=== PATIENT | female | born 1935 | race Caucasian/White ===

== ENCOUNTER → 2016-06-19 | Day surgery (SDC) | payer MEDICARE ==
[~2016-06-19] MED LIST: ACETAMINOPHEN PO; ASPIRIN81 M2 PO; ASPIRIN81 MG PO; ATENOLOL50 MG PO; ATIVAN0.5 MG PO; BRILINTA90 MG PO; CALCIUM + VITAM1 TAB PO; DOCUSATE SODIU100 MG PO; EDTA TOP; IMDUR PO; LASIX20 MG PO; LEVAQUIN750 MG PO; LEVOTHYROXINE25 MCG PO; LIPITOR40 MG PO; LISINOPRIL PO; LORAZEPAM0.5 MG PO; MELATONIN3 M4 PO; MOBIC PO; NITROGLYCERIN0.3 M1 PO; OMEPRAZOLE20 M1 PO; REMERON SOLTAB15 M1 PO; REQUIP1 MG PO; SEROQUEL25 MG PO; SERTRALINE HCL100 M1 PO; SYNTHROID25 MCG PO; TENORMIN50 MG PO; ZESTRIL40 MG PO; ZOLOFT100 MG PO
--- NOTE | ~2016-06-19 | ECT ---
Unit #: [id number] #: [id number] Patient: GLORIA KENNEDY [id number] [place] [address] [id number] O MR#: [id number] NAME: GLORIA KENNEDY ROOM: Age: 81 Sex: F Admission Date: 06/19/2016 : 1935 Discharge Date: Attending Physician: Uriah North M.D. Primary Care Physician: Brandon Nuñez D.O. ECT NOTE DATE OF TREATMENT 06/19/2016 TREATMENT NUMBER 5 TREATMENT MODALITY Unilateral ECT ANESTHESIA Glycopyrrolate: 0.2 mg Brevital: 100 mg Succinylcholine: 80 mg TREATMENT PARAMETERS Charge: 384 millicoulombs Pulse Width: 1.0 milliseconds Frequency: 40 Hertz Duration: 6 seconds Current: 800 milliamps TREATMENT DELIVERED Energy: 84 joules Impedance: 268 ohms Charge: 384 millicoulombs SEIZURE MEASURES OMS: 21 seconds EE seconds COMPLICATIONS None. SUMMARY The patient had a good seizure with her OMS and EEG measures. Depression does seem to have shown significant improvement. She is much more brighter in her affect and seems more interactive with peers and staff. I will bring her back for 1 more ECT on Wednesday and if the weekend goes pretty well, will wrap up her treatment at that point. DIFFERENTIAL DIAGNOSES AXIS I: F33.2. AXIS II: Deferred. AXIS III: Nothing acute. Unit #: [id number] #: [id number] Patient: GLORIA KENNEDY Dictated by... Dana Noland/jordan TD: 06/19/2016 17:33 JOB #: [id number] ECT NOTE X Uriah North MD <ELECTRONICALLY SIGNED> 12/15/16 1702 X ECT
== END | disposition home or self-care (01) ==
LOC: CSUR 06:50
DX: F33.2 Major depressive disorder, recurrent severe without psychotic features (principal); F41.1 Generalized anxiety disorder; E03.9 Hypothyroidism, unspecified; K21.9 Gastro-esophageal reflux disease without esophagitis; R01.1 Cardiac murmur, unspecified; G47.00 Insomnia, unspecified; Z79.899 Other long term (current) drug therapy; I25.10 Atherosclerotic heart disease of native coronary artery without angina pectoris; I25.2 Old myocardial infarction; Z95.5 Presence of coronary angioplasty implant and graft; Z96.641 Presence of right artificial hip joint; Z90.710 Acquired absence of both cervix and uterus
CPT/HCPCS: 90870

== ENCOUNTER → 2016-06-22 | Day surgery (SDC) | payer MEDICARE ==
--- NOTE | ~2016-06-22 | ECT ---
Unit #: [id number] #: [id number] Patient: GLORIA KENNEDY [id number] [address] [id number] O MR#: [id number] NAME: GLORIA KENNEDY ROOM: Age: 81 Sex: F Admission Date: 06/22/2016 : 1935 Discharge Date: Attending Physician: Uriah North M.D. Primary Care Physician: Brandon Nuñez D.O. ECT NOTE DATE OF TREATMENT 06/22/2016 TREATMENT NUMBER Six. TREATMENT MODALITY Unilateral ECT. ANESTHESIA Glycopyrrolate: 0.2 mg. Brevital: 100 mg. Succinylcholine: 80 mg. TREATMENT PARAMETERS Charge: 384 millicoulombs Pulse Width: 1.0 milliseconds Frequency: 40 Hertz Duration: 6 seconds Current: 800 milliamps TREATMENT DELIVERED Energy: 84 joules Impedance: 266 ohms Charge: 384 millicoulombs SEIZURE MEASURES OMS: 20 seconds EE seconds COMPLICATIONS None. SUMMARY The patient had a good seizure with OMS and EEG measures. Depression seems to have reached remission status. She does not have any symptoms noted today. She did get out with friends over the weekend. She seems to be more engaged in self-grooming and her seems to feel that she has been doing significantly better. I will conclude her ECT treatment today and she will followup on a p.r.n. basis. DIFFERENTIAL DIAGNOSES AXIS I: F33.2 Unit #: [id number] #: [id number] Patient: GLORIA KENNEDY AXIS II: Deferred. AXIS III: Nothing acute. AXIS IV: AXIS V: Dictated by... Uriah North M.D. ANGELES/mario TD: 06/23/2016 12:23 JOB #: [id number] ECT NOTE X Uriah North MD <ELECTRONICALLY SIGNED> 12/15/16 1702 X ECT
== END | disposition home or self-care (01) ==
LOC: CSUR 07:24
DX: F33.2 Major depressive disorder, recurrent severe without psychotic features (principal); E03.9 Hypothyroidism, unspecified; I10 Essential (primary) hypertension; K21.9 Gastro-esophageal reflux disease without esophagitis; R01.1 Cardiac murmur, unspecified; Z79.899 Other long term (current) drug therapy; G47.00 Insomnia, unspecified; I25.10 Atherosclerotic heart disease of native coronary artery without angina pectoris; I25.2 Old myocardial infarction; Z95.5 Presence of coronary angioplasty implant and graft; Z90.710 Acquired absence of both cervix and uterus; Z96.641 Presence of right artificial hip joint
CPT/HCPCS: 90870; J0330

== ENCOUNTER 2016-07-02 11:36 | Observation (INO) | payer MEDICARE ==
--- NOTE | ~2016-07-02 | CO ---
Unit #: [id number] #: [id number] Patient: GLORIA KENNEDY [id number] [address] [place], [place] [address] [id number] I MR#: [id number] NAME: GLORIA KENNEDY ROOM: 548 Age: 81 Sex: F Admission Date: 07/02/2016 : 1935 Attending Physician: Beti Caban M.D. Primary Care Physician: Brandon Nuñez D.O. Consultation Date: 07/03/2016 CONSULTATION REPORT REQUESTING PHYSICIAN Lowell Quintero M.D. REASON FOR CONSULTATION Chest pain. HISTORY OF PRESENT ILLNESS The patient is an 81-year-old female with history of coronary artery disease, NY and stent placement, hypertension, dyslipidemia, GERD, and hypothyroidism who presented on July 02, 2016 to the emergency department with complaints of chest pain. The patient also has severe depression and has started ECT treatment in May. The patient had a treatment this past Wednesday. According to the chart, the patient developed generalized shakiness following her Wednesday ECT treatment. This continued for several days. She then developed chest pain on the night of July 01, 2016, and was later brought into the emergency room with complaints of chest pain and shakiness. The patient is a very poor historian and no family is present at bedside. I have also tried to call her at home with no answer. The patient is unable to describe the type of chest pain she had other than it was "not sharp." She says it was across the front of her chest. She thinks she had shortness of breath associated but no nausea, vomiting, or diaphoresis. She also had chest pain during the night and received nitroglycerin. According to the nurse, the patient states she later apologized about the pain and stated that she only wanted pain medicine; however, the patient does not report this to me. She does report that the nitroglycerin alleviated her pain. Serial troponins have been negative. PAST MEDICAL HISTORY 1. Coronary artery disease with history of NY and stent. 2. Murmur (according to a preop history and physical done in May, this has been evaluated. However, no echo reports were found in [facility]). 3. Hypertension. 4. Dyslipidemia. 5. GERD. 6. Hypothyroidism. 7. Severe depression with ECT treatment. 8. Insomnia. PAST SURGICAL HISTORY 1. Right total hip arthroplasty. 2. Tonsillectomy. 3. Hysterectomy. Unit #: [id number] #: [id number] Patient: GLORIA KENNEDY 4. Bilateral cataract extraction and implant placement. SOCIAL HISTORY The patient does not smoke. She states she smoked in the past but quit over 40 years ago. She denies alcohol use or illicit drug use. She is and lives at home with her who is reportedly a professor of musicology doctor. The patient ambulates with a walker. FAMILY HISTORY Patient had two brothers, who both had MIs in their 70s to 80s. HOME MEDICATIONS 1. Zestril 40 mg daily. 2. Zoloft 100 mg daily. 3. Synthroid 25 mcg daily. 4. Lasix 20 mg daily. 5. Mobic 7.5 mg daily. 6. Lipitor 40 mg daily. 7. Tenormin 50 mg daily. 8. Seroquel 25 mg nightly. 9. Ativan 0.5 mg twice daily. 10. Remeron 15 mg nightly. ALLERGIES No known drug allergies. REVIEW OF SYSTEMS GENERAL: The patient denies fevers, chills, or flu-like symptoms. HEENT: Denies headaches, vision loss, hearing loss, epistaxis, or dysphagia. NECK: Denies swollen glands or pain. PULMONARY: Denies cough, hemoptysis, or wheezing. GASTROINTESTINAL: Denies nausea, vomiting, diarrhea, or melena. GENITOURINARY: Denies hematuria or dysuria. EXTREMITIES: She states may have occasional swelling. Denies claudication. NEUROLOGIC: Denies dizziness or syncope. DIAGNOSTIC STUDIES LABORATORY: Troponin less than 0.03 at 6:45 this morning and at 12:17 this morning and at 1820 yesterday. Sodium 134, potassium 4.2, chloride 103, CO2 of 27, glucose 102, BUN 18, creatinine 0.8. White blood cell 9, hemoglobin 12.6, hematocrit 38.1, platelets 247,000. CK 138, CK-MB 4.3. TSH 3.95. BNP 267. PT 10, INR 1. IMAGING: CT of the head without contrast shows no acute abnormality, chronic appearing changes of periventricular and deep white matter tract probable sequela of chronic microvascular ischemia, mild generalized atrophy, and cavernous carotid and distal vertebral arterial calcifications. CARDIOVASCULAR: EKG shows normal sinus rhythm. PHYSICAL EXAMINATION VITAL SIGNS: Blood pressure is 117/57 (blood pressure was as high as 203/74 at admission), heart rate 72 and regular, respirations 18 and regular, temperature 98.2, O2 saturation 99% on room air. Weight 126 pounds. Unit #: [id number] #: [id number] Patient: GLORIA KENNEDY GENERAL: The patient is a well-developed, well-nourished, elderly, white female in no acute distress. Awake and oriented x3, although has difficulty with memory. HEENT: Head is normocephalic and atraumatic. No xanthelasmas. Oral mucosa is pink and moist. NECK: No JVD or carotid bruits. SPINE: No kyphosis or scoliosis. CHEST: Clear to auscultation bilaterally without wheezes, rhonchi, or accessory muscle use. CORONARY: Regular rate and rhythm with a 2/6 systolic murmur. No gallop, rub, or lift. ABDOMEN: Soft, nontender, nondistended. Positive bowel sounds x4. The aortic pulsation is not enlarged. EXTREMITIES: No clubbing, cyanosis, or edema. NEUROLOGIC: Awake and oriented x3. ASSESSMENT 1. Chest pain. 2. Coronary artery disease with history of stents. 3. Hypertension. 4. Dyslipidemia. 5. Gastroesophageal reflux disease. 6. Hypothyroidism. 7. Depression with electroconvulsive treatment. 8. Memory loss. PLAN Ms. Kennedy's case was discussed with Dr. Toan Hurtado. Given her history of coronary artery disease, NY and stent, and reports of chest pain, we felt ischemic evaluation was warranted. Again, we are unable to obtain much history from the patient and her family is not present at this time for further questioning. We will plan on a Lexiscan Cardiolite and if echocardiogram has not been performed in the past six months, this will be completed as well. Dictated by... Niesha BalderramaAChris for Toan Hurtado M.D. CMG/flash TD: 07/03/2016 13:41 JOB #: [id number] CONSULTATION REPORT X X CONSULTATION REPORT
--- NOTE | ~2016-07-02 | ST ---
Unit #: [id number] #: [id number] Patient: GLORIA KENNEDY [id number] [address] [place], [place] [address] [id number] MR#: [id number] NAME: GLORIA KENNEDY : 1935 SEX: F STUDY DATE/TIME: 07/03/2016 UNIT: C5B ROOM: 548 STUDY DESCRIPTION: Attending Physician: Beti Caban M.D. Primary Care Physician: Brandon Nuñez D.O. CARDIOLOGY REPORT EXAM Stress nuclear and ECG combined. INDICATIONS Chest pain. SUMMARY The patient received Lexiscan intravenously while at rest as well as technetium 99m Cardiolite 10.76 and 32.5 mCi at rest and stress respectively. Appropriate views were obtained. FINDINGS The patient was given Lexiscan and multifocal PVCs were noted as well as shortness of breath noted by the patient. The resting heart rate was 83, blood pressure 179/94. There were nonspecific ST changes primarily in V4 at rest but with stress there was 0.[address] depression in leads V4 through V6. These were nonspecific. Heart rate increased to 107. Blood pressure decreased to 144/89. Perfusion images demonstrate normal perfusion throughout the myocardium both at rest and stress. Planar images demonstrate no significant patient motion either at rest or stress. There is no significant lung uptake. There is breast attenuation artifact. There is no RV or LV enlargement. End-diastolic volume is 67 mL, ejection fraction 57%. There were no wall motion abnormalities. Summed stressed score is zero. Summed difference score is zero. IMPRESSION 1. Myocardial perfusion scan shows no ischemia or infarction. 2. Normal wall motion with excellent ejection fraction. 3. Patient may be discharged. 4. Pain is thought to be noncardiac. Dictated by... Toan Hurtado M.D. CLARISSE/flash TD: 07/04/2016 08:38 JOB #: [id number] Unit #: [id number] #: [id number] Patient: GLORIA KENNEDY CARDIOLOGY REPORT X Toan Hurtado MD CARDIOLOGY REPORT
--- NOTE | ~2016-07-02 | EKG ---
PATIENT: GLORIA KENNEDY UNIT #: [id number] Ventricular Rate: 83 BPM Atrial Rate: 83 BPM P-R Interval: 154 ms QRS Duration: 96 ms Q-T Interval: 436 ms QTC Calculation(Bezet): 512 ms P [place]: 31 degrees Calculated R [place]: -9 degrees Calculated T [place]: 59 degrees Diagnosis Line: Sinus rhythm with Premature atrial complexes with Diagnosis Line: Aberrant conduction Diagnosis Line: Nonspecific ST and T wave abnormality Diagnosis Line: Prolonged QT Diagnosis Line: Abnormal ECG Diagnosis Line: No previous ECGs available Diagnosis Line: Confirmed by CARLOS REYES MD ([id number]) on Diagnosis Line: 07/05/2016 11:56:44 PM INTERPRETING MD: AMY LOPEZ
--- NOTE | ~2016-07-02 | EKG ---
PATIENT: GLORIA KENNEDY UNIT #: [id number] Ventricular Rate: 74 BPM Atrial Rate: 74 BPM P-R Interval: 196 ms QRS Duration: 96 ms Q-T Interval: 436 ms QTC Calculation(Bezet): 483 ms P [place]: 67 degrees Calculated R [place]: 22 degrees Calculated T [place]: 38 degrees Diagnosis Line: Sinus rhythm with occasional Premature ventricular Diagnosis Line: complexes Diagnosis Line: Otherwise normal ECG Diagnosis Line: When compared with ECG of 08-JUN-2016 08:55, Diagnosis Line: Premature ventricular complexes are now Present Diagnosis Line: Confirmed by SPENCER GLYNN MD ([id number]) on 07/02/2016 Diagnosis Line: 5:46:35 PM INTERPRETING MD: GRETTA LOPEZ
--- NOTE | ~2016-07-02 | CR72 ---
[facility] A Service of [facility] RADIOLOGY TEXT RESULTS PATIENT: GLORIA KENNEDY LOCATION: [facility] 548-01 : 33 UNIT #: [id number] AGE: [address]: HERMILA REARDON MD SEX: F ORDER DR: [id number] [facility] [address] [place], [place] [address] [id number] E MR#: [id number] #: [id number] NAME: GLORIA KENNEDY : 1935 SEX: F STUDY DATE/TIME: 07/02/2016 12:41 UNIT: [facility] ROOM: STUDY DESCRIPTION: CR Chest Single View Portable Attending Physician: Dana Bush M.D. Ordering Physician: Dana Bush M.D. Primary Care Physician: Brandon Nuñez D.O. MEDICAL IMAGING REPORT This report is preliminary unless electronic signature is present EXAM Chest, portable, 07/02/2016, 1241 hours. CLINICAL HISTORY 81-year-old woman with chest pain and shakiness today, former smoker. COMPARISON None FINDINGS Portable upright chest demonstrates normal heart size and a mildly tortuous atherosclerotic aorta. The hilar contours are normal. The lungs are moderately well expanded with interstitial prominence in the mid and lower lungs which could be acute or chronic. An element of acute interstitial edema cannot be excluded. There is no effusion. There is advanced degenerative change at both shoulders, right greater than left. IMPRESSION Normal heart size with bibasilar interstitial change which could be acute or chronic. We have no prior studies for comparison. If acute, this could represent interstitial edema or interstitial pneumonitis. However, no pulmonary venous distension or pleural fluid is seen. Dictated by... Elham Hoang M.D. THIS IS AN ELECTRONICALLY VERIFIED REPORT Elham Hoang M.D. at 07/03/2016 8:58 AM ERMA/faith TD: 07/02/2016 14:41 [facility] A Service of [facility] RADIOLOGY TEXT RESULTS PATIENT: GLORIA KENNEDY LOCATION: [facility] 548-01 : [birth year] UNIT #: [id number] AGE: [address]: HERMILA REARDON MD SEX: F ORDER DR: JOB #: [id number] MEDICAL IMAGING REPORT COPY
--- NOTE | ~2016-07-02 | DS ---
Unit #: [id number] #: [id number] Patient: GLORIA KENNEDY [id number] [address] [place], [place] [address] [id number] I MR#: [id number] NAME: GLORIA KENNEDY ROOM: 548 Age: 81 Sex: F Admission Date: 07/02/2016 : 1935 Discharge Date: 07/04/2016 Attending Physician: Beti Caban M.D. Primary Care Physician: Brandon Nuñez D.O. DISCHARGE SUMMARY FINAL DIAGNOSES 1. Chest pain, acute coronary syndrome ruled out. 2. Bilateral lower extremity weakness and tremors. SECONDARY DIAGNOSES 1. Hypertension. 2. Hyperlipidemia. 3. Hypothyroidism. 4. Insomnia. 5. Gastroesophageal reflux disease. 6. History of myocardial infarction with stent. CONSULT Dr. Hurtado. PROCEDURE She had a Cardiolite stress test which was negative for ischemia. HOSPITAL COURSE An 81-year-old female who was admitted for what looked like chest pain and anxiety and bilateral lower extremity tremors and weakness. She was seen and evaluated in emergency room and admitted. Workup so far which included a stress test was negative. Ischemia was ruled out in this case. She has a significant cardiac history in the past with stents. She is well established with PCP, Dr. Brandon Nuñez. She was evaluated and found suitable and stable for discharge and will be discharged in stable condition for outpatient followup with her PCP in the next three to five days. She will be discharged with home health. Will get physical therapy/occupational therapy evaluation prior to discharge. DISCHARGE MEDICATIONS 1. Tylenol over the counter. 2. Remeron 15 mg p.o. at bedtime. 3. Zoloft 100 mg p.o. daily. 4. Seroquel 25 mg at bedtime. 5. Ativan 0.5 mg p.o. b.i.d. 6. Atenolol 50 mg p.o. daily. 7. Lasix 20 mg p.o. daily. 8. Lipitor 40 mg p.o. daily. 9. Zestril 40 mg p.o. daily. 10. Mobic 7.5 mg p.o. daily. 11. Synthroid 25 mcg p.o. daily. Her PCP is to consider Requip for possible restless legs. Unit #: [id number] #: [id number] Patient: GLORIA KENNEDY Time spent coordinating discharge is about 26 minutes. Dictated by... Dana Bryson/flash TD: 07/04/2016 09:49 JOB #: [id number] CC: Brandon Nuñez D.O. DISCHARGE SUMMARY X Salo Chamberlain MD X DISCHARGE SUMMARY
--- NOTE | ~2016-07-02 | HP ---
Unit #: [id number] #: [id number] Patient: GLORIA KENNEDY [id number] [address] [place], [place] [address] [id number] E MR#: [id number] NAME: GLORIA KENNEDY ROOM: Age: 81 Sex: F Admission Date: 07/02/2016 : 1935 Attending Physician: Dana Bush M.D. Primary Care Physician: Brandon Nuñez D.O. HISTORY AND PHYSICAL CHIEF COMPLAINT Chest pain. HISTORY OF PRESENT ILLNESS The patient is an 81-year-old female brought to the emergency room complaining of chest pain associated with shaking all over the body. The patient had multiple ECTs for severe depression and the last ECT was on Wednesday. On the Wednesday afternoon is when the patient started having shakiness that lasted for an hour. The patient continues to have shakiness for the last few days. However, she started complaining of chest pain since last night. The patient was brought to the emergency room for the chest pain associated with shakiness. The patient denies any fever, chills, nausea, vomiting and diaphoresis. The patient has a history of myocardial infarction with history of a stent placement in the past. The patient is being admitted for the above reasons. PAST MEDICAL HISTORY 1. Depression/anxiety with previous history of ECTs. 2. Hypertension. 3. Hyperlipidemia. 4. Hypothyroidism. 5. Insomnia. 6. Gastroesophageal reflux disease. 7. History of myocardial infarction with stent. PAST SURGICAL HISTORY 1. Right total hip arthroplasty. 2. Tonsillectomy. 3. Hysterectomy. 4. Bilateral cataract extractions. SOCIAL HISTORY The patient denies tobacco, alcohol or any illicit drug abuse. She is . Her is a cytology supervisor doctor. FAMILY HISTORY Reviewed and none. No history of depression. ALLERGIES No known drug allergies. HOME MEDICATIONS 1. Lorazepam. 2. Sertraline. Unit #: [id number] #: [id number] Patient: GLORIA KENNEDY 3. Aspirin. 4. Lipitor. 5. Atenolol. 6. Calcium. 7. Lasix. 8. Levothyroxine. 9. Zestril. 10. Melatonin. 11. Mobic. 12. Omeprazole. REVIEW OF SYSTEMS Fourteen point review of systems performed and only pertinent positive findings are described above. The remaining are negative. PHYSICAL EXAMINATION GENERAL: The patient is lying on a bed, not in acute distress. VITALS: Temperature 98, pulse 58, respiratory rate 18, blood pressure 175/110, oxygen saturation 100% on room air. HEENT: Head atraumatic, normocephalic. Pupils equal, round and reactive to light and accommodation. Extraocular movements are intact. Moist mucous membranes. NECK: Supple. No jugular venous distension. LUNGS: Clear to auscultation bilaterally. Decreased air entry. HEART: Regular rate and rhythm. Positive for murmur. ABDOMEN: Soft. Positive bowel sounds. EXTREMITIES: No cyanosis or clubbing. NEUROLOGIC: Awake, alert and oriented. No gross focal motor deficits. PSYCHIATRIC: The patient is anxious and has shakiness. DIAGNOSTIC STUDIES IMAGING: Chest x-ray shows normal heart size with bibasilar interstitial change which could be acute or chronic. We have no prior study for comparison. This could represent interstitial edema or interstitial pneumonitis. However, no pulmonary venous distension or pleural fluid is seen. LABORATORY: Glucose 87, BUN 19, creatinine 0.8, sodium 135, potassium 3.8, chloride 100, bicarb 22, calcium 9.7, magnesium 2, AST 78, ALT 58, alkaline phosphatase 242, BNP 267, TSH 3.95, INR 1, troponin less than 0.05, white blood cell count 8.1, hemoglobin 13.3, hematocrit 31.4, platelets 253. CARDIOVASCULAR: EKG shows sinus rhythm with a rate of 75 beats per minute with PVCs and QTC of 483. ASSESSMENT 1. Chest pain. Rule out ischemia. 2. Shakiness/anxiety. 3. Depression, status post multiple ECTs. 4. History of coronary artery disease. 5. Hypertension. PLAN Admit the patient to observation with telemetry. Rule out ischemia with serial troponins. Have cardiology evaluation for the echo/stress test. Will continue with Xanax and Ativan p.r.n. for anxiety. Repeat labs again in the morning. Further recommendations will follow. Unit #: [id number] #: [id number] Patient: GLORIA KENNEDY Dictated by Dana Young TD: 07/02/2016 15:32 JOB #: [id number] HISTORY AND PHYSICAL X X HISTORY AND PHYSICAL
--- NOTE | ~2016-07-02 | CT71 ---
[facility] A Service of [facility] RADIOLOGY TEXT RESULTS PATIENT: GLORIA KENNEDY LOCATION: [facility] 548-01 : 33 UNIT #: [id number] AGE: [address]: Beti Caban MD SEX: F ORDER DR: [id number] [facility] [address] [place], [place] [address] [id number] E MR#: [id number] Acc #: [id number] NAME: GLORIA KENNEDY : 1935 SEX: F STUDY DATE/TIME: 07/02/2016 14:14 UNIT: ZEHRA ROOM: STUDY DESCRIPTION: CT Head Wo Contrast Attending Physician: Dana Bush M.D. Ordering Physician: Dana Bush M.D. Primary Care Physician: Brandon Nuñez D.O. MEDICAL IMAGING REPORT This report is preliminary unless electronic signature is present EXAM CT head. DATE OF EXAM 07/02/2016 HISTORY Chest pain, shaking all over. Confusion, anxiety for today, 50 minutes prior to arrival, recent electric shock therapy on Wednesday, [address] head performed skull base through vertex without intravenous contrast. NOTE: This CT exam was performed with one or more of the following radiation dose reduction techniques: automatic exposure control, adjustment of mA and/or kV according to patient size, and iterative reconstruction. COMPARISON No prior CTs for comparison at this institution. FINDINGS No intracranial hemorrhage or evidence of acute cortical ischemia. The midline structures are nondisplaced. The basal ganglia are intact. There are mild periventricular and deep white matter tract probable sequelae of chronic microvascular ischemia. Ventricles, cisterns and sulci show mild generalized enlargement consistent with mild generalized atrophy. Cavernous carotid and distal vertebral arterial calcifications. Intraorbital soft tissues unremarkable. Visualized paranasal sinuses and mastoid air cells are clear. IMPRESSION 1. No indication of acute abnormality in brain. If patient has ongoing neurologic symptoms, consider follow up imaging. [facility] A Service of [facility] RADIOLOGY TEXT RESULTS PATIENT: GLORIA KENNEDY [id number] [birth year] UNIT #: [id number] AGE: [address]: Beti Caban MD SEX: F ORDER DR: 2. Chronic-appearing changes include: Periventricular and deep white matter tract probable sequelae of chronic microvascular ischemia, mild generalized atrophy, cavernous carotid and distal vertebral arterial calcifications. Dictated by... Brandon Tinsley M.D. THIS IS AN ELECTRONICALLY VERIFIED REPORT Brandon Tinsley M.D. at 07/03/2016 4:18 PM Mely TD: 07/02/2016 17:23 JOB #: [id number] MEDICAL IMAGING REPORT COPY
[~2016-07-02 11:36] MED LIST changes: -ACETAMINOPHEN PO; -ASPIRIN81 MG PO; -ATIVAN0.5 MG PO; -BRILINTA90 MG PO; -DOCUSATE SODIU100 MG PO; -IMDUR PO; -LEVAQUIN750 MG PO; -NITROGLYCERIN0.3 M1 PO; -REMERON SOLTAB15 M1 PO; -REQUIP1 MG PO; -SEROQUEL25 MG PO; -SYNTHROID25 MCG PO; -TENORMIN50 MG PO; -ZESTRIL40 MG PO; -ZOLOFT100 MG PO
[2016-07-02 12:42] LABS: BASOPHIL% 0.3 % (0-2.5); EOSINOPHIL# 0.1 X10e3 (0-0.7); EOSINOPHIL% 1.7 % (0.0-7.0); HEMATOCRIT 39.4 % (35.0-45.0); HEMOGLOBIN 13.3 gm/dL (12.0-16.0); LYMPHOCYTE# 2.1 X10e3 (1.0-3.5); LYMPHOCYTE% 26.3 % (17.0-45.0); MEAN CELL VOLUME 89.7 FL (83-96); MEAN CORPUSCULAR HEMOGLOBIN 30.2 PG (28-34); MEAN CORPUSCULAR HGB CONC 33.7 g/dL (30-36); MEAN PLATELET VOLUME 9.5 FL (6.5-11.5); MONOCYTE# 0.6 X10e3 (0-1.0); MONOCYTE% 7.7 % (3.0-12.0); NEUTROPHIL# 5.1 X10e3 (1.5-7.1); PLATELET COUNT 253 X10e3 (140-420); RED BLOOD COUNT 4.39 X10e (3.90-5.30); RED CELL DISTRIBUTION WIDTH 13.9 % (11.0-15.5); WHITE BLOOD COUNT 8.1 X10e3 (4.0-10.5)
[2016-07-02 12:43] LABS: DIFF IND NO
[2016-07-02 12:54] LABS: PARTIAL THROMBOPLASTIN TIME 26.1 SECONDS (23.5-31.3)
[2016-07-02 12:54] LABS: POC - CKMB 2.6 ng/mL (0.0-7.9); POC - TROPONIN <0.05 ng/mL (<=0.05)
[2016-07-02 13:11] LABS: ALBUMIN SERUM 4.5 g/dL (3.5-5.0); ALKALINE PHOSPHATASE 242 U/L (32-92); ALT (SGPT) 66 U/L (10-40); AST (SGOT) 78 U/L (10-42); BILIRUBIN, DIRECT 0.1 mg/dL (0.0-0.2); BILIRUBIN,INDIRECT 0.2 mg/dL (0.0-0.9); BILIRUBIN,TOTAL 0.3 mg/dL (0.2-2.0); BLOOD UREA NITROGEN 19 mg/dL (9-23); BUN/CREATININE RATIO 23.75; CALCIUM SERUM 9.7 mg/dL (8.4-10.2); CARBON DIOXIDE 22 mmol/L (22-31); CHLORIDE 100 mmol/L (100-111); CREATININE SERUM 0.8 mg/dL (0.6-1.4); GLOM FILT RATE Estimated ABOVE60 mL/min (>60); GLUCOSE FASTING 87 mg/dL (70-110); POTASSIUM 3.8 mmol/L (3.5-5.1); PROTEIN TOTAL SERUM 7.8 g/dL (6.0-8.3); SODIUM 135 mmol/L (135-145)
[2016-07-02 14:54] LABS: POC - CKMB 1.8 ng/mL (0.0-7.9); POC - TROPONIN <0.05 ng/mL (<=0.05)
[2016-07-02 21:30] LABS: %MB 3.1 % (0.0-4.0); MB 4.3 ng/ml
[2016-07-03 07:07] LABS: HEMATOCRIT 38.1 % (35.0-45.0); HEMOGLOBIN 12.6 gm/dL (12.0-16.0); MEAN CELL VOLUME 89.4 FL (83-96); MEAN CORPUSCULAR HEMOGLOBIN 29.6 PG (28-34); MEAN CORPUSCULAR HGB CONC 33.1 g/dL (30-36); MEAN PLATELET VOLUME 8.7 FL (6.5-11.5); RED BLOOD COUNT 4.26 X10e (3.90-5.30); RED CELL DISTRIBUTION WIDTH 14.4 % (11.0-15.5)
[2016-07-03 07:30] LABS: BLOOD UREA NITROGEN 18 mg/dL (9-23); CALCIUM SERUM 8.9 mg/dL (8.4-10.2); CARBON DIOXIDE 27 mmol/L (22-31); CHLORIDE 103 mmol/L (100-111); CREATININE SERUM 0.8 mg/dL (0.6-1.4); GLOM FILT RATE Estimated ABOVE60 mL/min (>60); GLUCOSE FASTING 102 mg/dL (70-110); POTASSIUM 4.2 mmol/L (3.5-5.1); SODIUM 134 mmol/L (135-145)
[2016-08-26] MEDS ORDERED: ACETAMINOPHEN PO (09:57)
[2016-08-26] MEDS ORDERED: ZESTRIL40 MG PO (15:22)
[2016-08-26] MEDS ORDERED: SYNTHROID25 MCG PO (15:23)
[2016-08-26] MEDS ORDERED: ZOLOFT100 MG PO (15:23)
[2016-08-26] MEDS ORDERED: MOBIC PO (15:24)
[2016-08-26] MEDS ORDERED: LASIX20 MG PO (15:24)
[2016-08-26] MEDS ORDERED: LIPITOR40 MG PO (15:25)
[2016-08-26] MEDS ORDERED: SEROQUEL25 MG PO (15:26)
[2016-08-26] MEDS ORDERED: TENORMIN50 MG PO (15:26)
[2016-08-26] MEDS ORDERED: ATIVAN0.5 MG PO (15:27)
[2016-08-26] MEDS ORDERED: REMERON SOLTAB15 M1 PO (15:28)
[2016-08-26] MEDS ORDERED: DOCUSATE SODIU100 MG PO (16:35)
[2016-08-26] MEDS ORDERED: REQUIP1 MG PO (16:38)
[2016-08-26] MEDS ORDERED: BRILINTA90 MG PO (21:18)
[2016-08-26] MEDS ORDERED: ASPIRIN81 MG PO (21:19)
[2016-08-26] MEDS ORDERED: IMDUR PO (21:24)
[2016-08-26] MEDS ORDERED: NITROGLYCERIN0.3 M1 PO (21:26)
== END 2016-07-04 11:24 | disposition home or self-care (01) ==
LOC: CED 11:36 → C5B 15:14
PROVIDERS: Internal Medicine; Student in an Organized Health Care Education/Training Program
DX: R07.9 Chest pain, unspecified (principal); R53.1 Weakness; I10 Essential (primary) hypertension; I51.7 Cardiomegaly; I08.3 Combined rheumatic disorders of mitral, aortic and tricuspid valves; G93.89 Other specified disorders of brain; J84.9 Interstitial pulmonary disease, unspecified; E78.5 Hyperlipidemia, unspecified; E03.9 Hypothyroidism, unspecified; I49.3 Ventricular premature depolarization; K21.9 Gastro-esophageal reflux disease without esophagitis; G47.00 Insomnia, unspecified; I25.10 Atherosclerotic heart disease of native coronary artery without angina pectoris; R41.3 Other amnesia; F32.9 Major depressive disorder, single episode, unspecified; Z79.899 Other long term (current) drug therapy; I25.2 Old myocardial infarction; Z87.891 Personal history of nicotine dependence; Z95.5 Presence of coronary angioplasty implant and graft; Z90.710 Acquired absence of both cervix and uterus; Z84.89 Family history of other specified conditions
CPT/HCPCS: 36415; 70450; 71010; 78452; 80048; 80076; 82550; 82553; 82947; 83735; 83880; 84443; 84484; 85025; 85027; 85610; 85730; 93005; 93017; 93306; 94760; 96372; 96374; 97116; 97161; 99285; A9500; G0378; G8978-GP; G8979-GP; G8980-GP; J1650; J2060; J2270; J2785

== ENCOUNTER 2016-07-09 23:05 | Emergency (ER) | payer MEDICARE ==
--- NOTE | ~2016-07-09 | CR72 ---
[facility] A Service of [facility] RADIOLOGY TEXT RESULTS PATIENT: GLORIA KENNEDY LOCATION: [facility] : 33 UNIT #: [id number] AGE: [address]: John Deng MD SEX: F ORDER DR: [id number] [facility] [address] [place], [place] [address] [id number] E MR#: [id number] #: [id number] NAME: GLORIA KENNEDY : 1935 SEX: F STUDY DATE/TIME: 07/09/2016 22:11 UNIT: [facility] ROOM: STUDY DESCRIPTION: CR Chest Single View Portable Attending Physician: John Deng M.D. Ordering Physician: John Deng M.D. Primary Care Physician: Brandon Nuñez D.O. MEDICAL IMAGING REPORT This report is preliminary unless electronic signature is present EXAM AP portable chest. DATE 07/09/2016 at 2211 HISTORY Shortness of breath and left side chest pain and weakness today. COMPARISON None FINDINGS Emphysematous changes are present in both lungs. Fine interstitial prominence is present predominately in a bibasilar distribution, which appears less conspicuous or improved since the previous exam. Nodular density projecting over the left lung base is not seen on the previous study, most likely representing a prominent nipple shadow. There is mild thoracic dextroscoliosis. Osteopenic changes are present. Advanced degenerative changes in both shoulders. No pleural effusion. No pneumothorax. Normal heart size. IMPRESSION 1. Suspected chronic emphysematous changes. Interstitial thickening in the lung bases appears improved since 07/02/2016, may represent improving interstitial pneumonitis superimposed upon fibrotic change. 2. Nodular density projecting over the left lower lobe appears new since the 07/02/2016. It is strongly favored to represent a nipple shadow. Consider repeat imaging with nipple markers. 3. Thoracic dextroscoliosis. Osteopenia. [facility] A Service of [facility] RADIOLOGY TEXT RESULTS PATIENT: GLORIA KENNEDY LOCATION: [facility] : 33 UNIT #: [id number] AGE: [address]: John Deng MD SEX: F ORDER DR: Dictated by... Heydi Andrade M.D. THIS IS AN ELECTRONICALLY VERIFIED REPORT Heydi Andrade M.D. at 07/14/2016 8:38 AM INA/faith TD: 07/10/2016 09:37 JOB #: [id number] MEDICAL IMAGING REPORT Page 1 of 1 COPY
--- NOTE | ~2016-07-09 | EKG ---
PATIENT: GLORIA KENNEDY UNIT #: [id number] Ventricular Rate: 66 BPM Atrial Rate: 66 BPM P-R Interval: 178 ms QRS Duration: 92 ms Q-T Interval: 442 ms QTC Calculation(Bezet): 463 ms P [place]: -13 degrees Calculated R [place]: -14 degrees Calculated T [place]: 23 degrees Diagnosis Line: Sinus rhythm with occasional Premature ventricular Diagnosis Line: complexes Diagnosis Line: Otherwise normal ECG Baseline wander Diagnosis Line: When compared with ECG of 02-JUL-2016 20:25, Diagnosis Line: Premature ventricular complexes are now Present Diagnosis Line: Aberrant conduction is no longer Present Diagnosis Line: Confirmed by SPENCER GLYNN MD ([id number]) on 07/13/2016 Diagnosis Line: 7:17:28 AM INTERPRETING MD: GRETTA LOPEZ
--- NOTE | ~2016-07-09 | CT2 ---
[facility] A Service of [facility] RADIOLOGY TEXT RESULTS PATIENT: GLORAI KENNEDY LOCATION: [facility] : 33 UNIT #: [id number] AGE: [address]: John Deng MD SEX: F ORDER DR: [id number] [facility] [address] [place], [place] [address] [id number] E MR#: [id number] #: [id number] NAME: GLORIA KENNEDY : 1935 SEX: F STUDY DATE/TIME: 07/10/2016 0:02 UNIT: [facility] ROOM: STUDY DESCRIPTION: CT Abd and Pelv W Cont Attending Physician: John Deng M.D. Ordering Physician: John Deng M.D. Primary Care Physician: Brandon Nuñez D.O. MEDICAL IMAGING REPORT This report is preliminary unless electronic signature is present EXAM CT abdomen and pelvis with contrast. DATE 07/10/2016 HISTORY 81-year-old female with chest pain for 1 hour. Epigastric pain and elevated transaminase levels. COMPARISON None PROCEDURE 5 mm axial images from the lung bases through the lesser trochanters after intravenous and enteric contrast administration. Sagittal and coronal reformatted images were obtained. This CT exam was performed with one or more of the following radiation dose reduction techniques: automatic exposure control, adjustment of mA and/or kV according to patient size, and iterative reconstruction. FINDINGS Mild emphysematous changes of the lung bases without basilar consolidation. Heart size appears within normal limits. No focal liver lesions identified. No abnormal biliary dilation is evident. The gallbladder appears unremarkable. No ascites. Spleen, pancreas, adrenals are normal. Right renal cyst measures 4.1 cm. Left kidney within normal limits. Advanced calcific atherosclerosis in the abdominal aorta without aneurysm. Tiny umbilical hernia contains only fat. Moderate stool burden in the ascending colon. Diverticular changes in the descending and sigmoid colon without evidence of acute diverticulitis. Moderate sigmoid colonic stool burden. No evidence of high-grade large or small bowel [facility] A Service of [facility] RADIOLOGY TEXT RESULTS PATIENT: GLORIA KENNEDY [id number] UNIT #: [id number] AGE: [address]: John Deng MD SEX: F ORDER DR: obstruction. No pathologic adenopathy is seen. Dense calcific atherosclerosis at the origins of the SMA and celiac arteries. PELVIS FINDINGS: Uterus, urinary bladder, and rectum are within normal limits. No pelvic free fluid or adenopathy is seen. Right hip replacement and left femur ORIF changes are present which obscure several of the images. Old left inferior pubic ramus fracture. Posterior spinal fusion changes from L3 through S1. Lumbar levoscoliosis. Multilevel degenerative changes within the lumbar spine. No acute osseous abnormalities are identified. IMPRESSION 1. No acute findings within the abdomen and pelvis. 2. Moderate generalized colonic stool burden. Scattered diverticular changes without CT evidence of acute diverticulitis. 3. Postsurgical changes of the lumbar spine and of both hips. Advanced degenerative changes of the spine with levoscoliosis. 4. Mild emphysema. 5. Right renal cyst. 6. Advanced calcific atherosclerosis. Dictated by... Heydi Adnrade M.D. THIS IS AN ELECTRONICALLY VERIFIED REPORT Heydi Andrade M.D. at 07/14/2016 8:37 AM INA/faith TD: 07/10/2016 09:53 JOB #: [id number] MEDICAL IMAGING REPORT Page 1 of 1 COPY
[2016-07-09 22:18] LABS: POC - CKMB <1.0 ng/mL (0.0-7.9); POC - TROPONIN <0.05 ng/mL (<=0.05)
[2016-07-09 22:20] LABS: BASOPHIL# 0.1 X10e3 (0-0.3); BASOPHIL% 0.9 % (0-2.5); EOSINOPHIL# 0.1 X10e3 (0-0.7); EOSINOPHIL% 1.4 % (0.0-7.0); HEMATOCRIT 37.4 % (35.0-45.0); HEMOGLOBIN 12.3 gm/dL (12.0-16.0); LYMPHOCYTE# 3.1 X10e3 (1.0-3.5); LYMPHOCYTE% 32.1 % (17.0-45.0); MEAN CELL VOLUME 90.2 FL (83-96); MEAN CORPUSCULAR HEMOGLOBIN 29.6 PG (28-34); MEAN CORPUSCULAR HGB CONC 32.8 g/dL (30-36); MEAN PLATELET VOLUME 9.6 FL (6.5-11.5); MONOCYTE# 1.1 X10e3 (0-1.0); MONOCYTE% 11.7 % (3.0-12.0); NEUTROPHIL# 5.3 X10e3 (1.5-7.1); NEUTROPHIL% 53.9 % (40-75); PLATELET COUNT 283 X10e3 (140-420); RED BLOOD COUNT 4.15 X10e (3.90-5.30); RED CELL DISTRIBUTION WIDTH 13.8 % (11.0-15.5); WHITE BLOOD COUNT 9.8 X10e3 (4.0-10.5)
[2016-07-09 22:21] LABS: DIFF IND NO
[2016-07-09 22:34] LABS: INR 0.9; PARTIAL THROMBOPLASTIN TIME 26.7 SECONDS (23.5-31.3); PROTHROMBIN TIME (PATIENT) 9.9 SECONDS (9.6-11.5)
[2016-07-09 22:46] LABS: ALBUMIN SERUM 4.1 g/dL (3.5-5.0); ALKALINE PHOSPHATASE 242 U/L (32-92); ALT (SGPT) 90 U/L (10-40); AST (SGOT) 100 U/L (10-42); BILIRUBIN, DIRECT 0.1 mg/dL (0.0-0.2); BILIRUBIN,INDIRECT 0.5 mg/dL (0.0-0.9); BILIRUBIN,TOTAL 0.6 mg/dL (0.2-2.0); BLOOD UREA NITROGEN 26 mg/dL (9-23); CALCIUM SERUM 9.7 mg/dL (8.4-10.2); CARBON DIOXIDE 23 mmol/L (22-31); CHLORIDE 99 mmol/L (100-111); CREATININE SERUM 0.5 mg/dL (0.6-1.4); GLOM FILT RATE Estimated ABOVE60 mL/min (>60); GLUCOSE FASTING 78 mg/dL (70-110); POTASSIUM 3.8 mmol/L (3.5-5.1); PROTEIN TOTAL SERUM 7.4 g/dL (6.0-8.3); SODIUM 133 mmol/L (135-145)
[2016-07-10 00:07] LABS: POC - CKMB <1.0 ng/mL (0.0-7.9); POC - TROPONIN <0.05 ng/mL (<=0.05)
[2016-08-26] MEDS ORDERED: ACETAMINOPHEN PO (09:57)
[2016-08-26] MEDS ORDERED: ZESTRIL40 MG PO (15:22)
[2016-08-26] MEDS ORDERED: SYNTHROID25 MCG PO (15:23)
[2016-08-26] MEDS ORDERED: ZOLOFT100 MG PO (15:23)
[2016-08-26] MEDS ORDERED: LASIX20 MG PO (15:24)
[2016-08-26] MEDS ORDERED: MOBIC PO (15:24)
[2016-08-26] MEDS ORDERED: LIPITOR40 MG PO (15:25)
[2016-08-26] MEDS ORDERED: SEROQUEL25 MG PO (15:26)
[2016-08-26] MEDS ORDERED: TENORMIN50 MG PO (15:26)
[2016-08-26] MEDS ORDERED: ATIVAN0.5 MG PO (15:27)
[2016-08-26] MEDS ORDERED: REMERON SOLTAB15 M1 PO (15:28)
[2016-08-26] MEDS ORDERED: DOCUSATE SODIU100 MG PO (16:35)
[2016-08-26] MEDS ORDERED: REQUIP1 MG PO (16:38)
[2016-08-26] MEDS ORDERED: BRILINTA90 MG PO (21:18)
[2016-08-26] MEDS ORDERED: ASPIRIN81 MG PO (21:19)
[2016-08-26] MEDS ORDERED: IMDUR PO (21:24)
[2016-08-26] MEDS ORDERED: NITROGLYCERIN0.3 M1 PO (21:26)
== END 2016-07-10 01:25 | disposition home or self-care (01) ==
LOC: CED 23:05
PROVIDERS: Emergency Medicine
DX: R07.9 Chest pain, unspecified (principal); F41.9 Anxiety disorder, unspecified; I25.10 Atherosclerotic heart disease of native coronary artery without angina pectoris; Z79.899 Other long term (current) drug therapy; Z87.891 Personal history of nicotine dependence
CPT/HCPCS: 36415; 71010; 74177; 80048; 80076; 82553; 84484; 85025; 85610; 85730; 93005; 96374; 96375; 99284; J1885; J2060; J2270; Q9967

== ENCOUNTER 2016-07-11 17:49 | Emergency (ER) | payer MEDICARE ==
--- NOTE | ~2016-07-11 | EKG ---
PATIENT: GLORIA KENNEDY UNIT #: [id number] Ventricular Rate: 63 BPM Atrial Rate: 63 BPM P-R Interval: 210 ms QRS Duration: 94 ms Q-T Interval: 432 ms QTC Calculation(Bezet): 442 ms P [place]: 72 degrees Calculated R [place]: 0 degrees Calculated T [place]: 37 degrees Diagnosis Line: Sinus rhythm with 1st degree A-V block Baseline Diagnosis Line: wander Diagnosis Line: Otherwise normal ECG Diagnosis Line: When compared with ECG of 09-JUL-2016 21:34, Diagnosis Line: (unconfirmed) Diagnosis Line: Premature ventricular complexes are no longer Diagnosis Line: Present Diagnosis Line: WV interval has increased Diagnosis Line: Confirmed by SPENCER GLYNN MD ([id number]) on 07/13/2016 Diagnosis Line: 7:29:52 AM INTERPRETING MD: GRETTA LOPEZ
--- NOTE | ~2016-07-11 | CR72 ---
[facility] A Service of [facility] RADIOLOGY TEXT RESULTS PATIENT: FRANCIE KENNEDY LOCATION: [facility] : 33 UNIT #: [id number] AGE: [address]: Adonis Ricketts MD SEX: F ORDER DR: [id number] [facility] [address] [place], [place] [address] [id number] E MR#: [id number] #: [id number] NAME: FRANCIE KENNEDY : 1935 SEX: F STUDY DATE/TIME: 07/11/2016 17:02 UNIT: [facility] ROOM: STUDY DESCRIPTION: CR Chest Single View Portable Attending Physician: Adonis Ricketts M.D. Ordering Physician: Adonis Ricketts M.D. Primary Care Physician: Brandon Nuñez D.O. MEDICAL IMAGING REPORT This report is preliminary unless electronic signature is present EXAM Chest x-ray portable, 07/11/2016 HISTORY Chest pain started three weeks ago. COMMENT New with chest x-ray portable chest pain started 3 weeks ago. COMMENT Single frontal portable view of the chest timed 17:02 07/11/2016 compared to 07/09/2016. The cardiac silhouette size is top normal. I believe there are chronic interstitial changes not changed from the 07/09 film. There is a density again seen at the left base but I believe this is callus related to multiple left rib fractures. Also an old right rib fracture with deformity. No acute infiltrate. No pneumothorax or pleural effusion. No acute congestive failure. IMPRESSION 1. Likely chronic interstitial lung disease. 2. Old rib fractures. 3. No acute infiltrate, acute congestive failure, pleural effusion or pneumothorax. Dictated by... Francie Nation M.D. THIS IS AN ELECTRONICALLY VERIFIED REPORT Francie Nation M.D. at 07/13/2016 7:45 AM [facility] A Service of [facility] RADIOLOGY TEXT RESULTS PATIENT: FRANCIE KENNEDY LOCATION: [facility] : 33 UNIT #: [id number] AGE: [address]: Adonis Ricketts MD SEX: F ORDER DR: NINOSKA/pierre TD: 07/12/2016 21:09 JOB #: [id number] MEDICAL IMAGING REPORT COPY
[2016-07-11 17:20] LABS: BASOPHIL% 0.2 % (0-2.5); DIFF IND NO; EOSINOPHIL# 0.1 X10e3 (0-0.7); EOSINOPHIL% 1.6 % (0.0-7.0); HEMATOCRIT 36.7 % (35.0-45.0); MEAN CELL VOLUME 90.2 FL (83-96); MEAN CORPUSCULAR HEMOGLOBIN 29.6 PG (28-34); MEAN CORPUSCULAR HGB CONC 32.8 g/dL (30-36); MEAN PLATELET VOLUME 9.8 FL (6.5-11.5); MONOCYTE# 0.8 X10e3 (0-1.0); MONOCYTE% 9.3 % (3.0-12.0); NEUTROPHIL# 5.4 X10e3 (1.5-7.1); NEUTROPHIL% 64.9 % (40-75); PLATELET COUNT 279 X10e3 (140-420); RED BLOOD COUNT 4.07 X10e (3.90-5.30); WHITE BLOOD COUNT 8.4 X10e3 (4.0-10.5)
[2016-07-11 17:21] LABS: POC - TROPONIN <0.05 ng/mL (<=0.05)
[2016-07-11 17:32] LABS: INR 0.9; PROTHROMBIN TIME (PATIENT) 9.8 SECONDS (9.6-11.5)
[2016-07-11 17:42] LABS: ALKALINE PHOSPHATASE 212 U/L (32-92); ALT (SGPT) 69 U/L (10-40); AST (SGOT) 67 U/L (10-42); BILIRUBIN, DIRECT 0.2 mg/dL (0.0-0.2); BILIRUBIN,INDIRECT 0.2 mg/dL (0.0-0.9); BILIRUBIN,TOTAL 0.4 mg/dL (0.2-2.0); BLOOD UREA NITROGEN 27 mg/dL (9-23); BUN/CREATININE RATIO 38.57; CALCIUM SERUM 9.5 mg/dL (8.4-10.2); CARBON DIOXIDE 21 mmol/L (22-31); CHLORIDE 102 mmol/L (100-111); CREATININE SERUM 0.7 mg/dL (0.6-1.4); GLOM FILT RATE Estimated ABOVE60 mL/min (>60); GLUCOSE FASTING 79 mg/dL (70-110); POTASSIUM 4.3 mmol/L (3.5-5.1); PROTEIN TOTAL SERUM 7.3 g/dL (6.0-8.3); SODIUM 133 mmol/L (135-145)
[2016-07-11 19:17] LABS: POC - CKMB <1.0 ng/mL (0.0-7.9); POC - TROPONIN <0.05 ng/mL (<=0.05)
[2016-08-26] MEDS ORDERED: ACETAMINOPHEN PO (09:57)
[2016-08-26] MEDS ORDERED: ZESTRIL40 MG PO (15:22)
[2016-08-26] MEDS ORDERED: SYNTHROID25 MCG PO (15:23)
[2016-08-26] MEDS ORDERED: ZOLOFT100 MG PO (15:23)
[2016-08-26] MEDS ORDERED: MOBIC PO (15:24)
[2016-08-26] MEDS ORDERED: LASIX20 MG PO (15:24)
[2016-08-26] MEDS ORDERED: LIPITOR40 MG PO (15:25)
[2016-08-26] MEDS ORDERED: SEROQUEL25 MG PO (15:26)
[2016-08-26] MEDS ORDERED: TENORMIN50 MG PO (15:26)
[2016-08-26] MEDS ORDERED: ATIVAN0.5 MG PO (15:27)
[2016-08-26] MEDS ORDERED: REMERON SOLTAB15 M1 PO (15:28)
[2016-08-26] MEDS ORDERED: DOCUSATE SODIU100 MG PO (16:35)
[2016-08-26] MEDS ORDERED: REQUIP1 MG PO (16:38)
[2016-08-26] MEDS ORDERED: BRILINTA90 MG PO (21:18)
[2016-08-26] MEDS ORDERED: ASPIRIN81 MG PO (21:19)
[2016-08-26] MEDS ORDERED: IMDUR PO (21:24)
[2016-08-26] MEDS ORDERED: NITROGLYCERIN0.3 M1 PO (21:26)
== END 2016-07-11 20:15 | disposition home or self-care (01) ==
LOC: CED 17:49
PROVIDERS: Emergency Medicine
DX: R07.89 Other chest pain (principal); I10 Essential (primary) hypertension; Z95.1 Presence of aortocoronary bypass graft; Z90.710 Acquired absence of both cervix and uterus
CPT/HCPCS: 36415; 71010; 80048; 80076; 82553; 84484; 85025; 85610; 85730; 93005; 96374; 96375; 99284; J2060; J2270

== ENCOUNTER 2016-07-15 07:36 | Inpatient (IN) | payer MEDICARE ==
--- NOTE | ~2016-07-15 | EKG ---
PATIENT: GLORIA KENNEDY UNIT #: [id number] Ventricular Rate: 70 BPM Atrial Rate: 70 BPM P-R Interval: 224 ms QRS Duration: 114 ms Q-T Interval: 408 ms QTC Calculation(Bezet): 440 ms P [place]: 32 degrees Calculated R [place]: -17 degrees Calculated T [place]: 39 degrees Diagnosis Line: Sinus rhythm with 1st degree A-V block Diagnosis Line: Otherwise normal ECG Diagnosis Line: When compared with ECG of 15-JUL-2016 08:19, Diagnosis Line: (unconfirmed) Diagnosis Line: Sinus rhythm has replaced Junctional rhythm Diagnosis Line: ST no longer depressed in Inferior leads Diagnosis Line: Nonspecific T wave abnormality has replaced Diagnosis Line: inverted T waves in Inferior leads Diagnosis Line: Confirmed by CATY GARCIA MD ([id number]) on 07/17/2016 Diagnosis Line: 7:40:56 AM INTERPRETING MD: RADHA LOPEZ
--- NOTE | ~2016-07-15 | DS ---
Unit #: [id number] #: [id number] Patient: GLORIA KENNEDY [id number] [place], [place] [address] [id number] I MR#: [id number] NAME: GLORIA KENNEDY ROOM: 567 Age: 81 Sex: F Admission Date: 07/15/2016 : 1935 Discharge Date: 07/19/2016 Attending Physician: Uriah North M.D. Referring Physician: Uriah North M.D. Primary Care Physician: Brandon Nuñez D.O. DISCHARGE SUMMARY DISCHARGE DIAGNOSES 1. Chest pain, ruled out for an acute myocardial infarction. 2. Status post cardiac catheterization on 07/16/[address] Walton at [facility] that reveals the following results:. a. Left main normal. b. Left anterior descending artery proximal normal. First major diagonal branch with 90% stenosis that has a long segment. Mid LAD at the first diagonal branch 90%. Distal vessel small. c. Circumflex artery normal. First obtuse marginal branch with 50% stenosis. d. Right coronary artery mid and proximal normal. Distal had 30% to 40%. PLV with 90% stenosis as well as the PDA with 90% at its origin. 3. Status post angioplasty with 2 drug-eluting stent to the PDA and one to the distal right coronary artery. 4. Right wrist hematoma, resolved. 5. Blood loss anemia secondary to hematoma. 6. Hypertension. 7. Restless legs syndrome. 8. Anxiety. 9. Constipation. 10. Gram-negative loan urinary tract infection. DISCHARGE MEDICATIONS Acetaminophen 650 mg q.6 hours p.r.n., Remeron 15 mg q.h.s., Zoloft 100 mg daily, Seroquel 25 mg q.h.s., Ativan 0.5 mg b.i.d., Atenolol 25 mg b.i.d., Colace 100 mg b.i.d., furosemide 20 mg daily, Lipitor 80 mg q.h.s., lisinopril 10 mg q.h.s., aspirin 81 mg daily, Mobic 7.5 mg daily, Brilinta 90 mg b.i.d., levothyroxine 25 mcg daily, Imdur 30 mg daily, nitroglycerin 0.4 mg sublingual q.5 minutes x3 p.r.n. chest pain, Levaquin 750 mg p.o. daily x2 more days. HOSPITAL COURSE This is an 81-year-old white female, who was brought into the hospital as an outpatient for electroconvulsive therapy secondary to severe depression. She developed severe chest discomfort, pressure, and heaviness radiation to the neck associated with shortness of breath. She was ruled out for an acute myocardial infarction with negative cardiac enzymes and troponin. She was started on nitrates and continued on aspirin. Cardiac catheterization was recommended for which the patient agreed. Results of the cardiac catheterization where 90% long segment stenosis to the first major diagonal branch. The mid LAD had 90% stenosis. Right coronary artery PLV and PDA 90%. The distal right coronary artery with 30% to 40%. After discussion with her , was Unit #: [id number] #: [id number] Patient: GLORIA KENNEDY started to proceed with revascularization with stent placement. There was successful deployment of 2.5 x 12 mm Synergy drug-eluting stent into the PLV 90% stenosis reducing it to 0%. The PDA 90% stenosis was reduced using the 2.5 x 12 mm Synergy drug-eluting stent. It was post to the distal right coronary artery dissection at PDA origin. This was treated with 2.5 x 24 mm Synergy drug-eluting stent dilated to 2.5 mm in the PLV branch and 3.30 mm in the distal right coronary artery. The patient was on Brilinta prior to admission, where she continued on anti-platelet therapy. Later that evening, the patient developed lethargy. Her blood pressure dropped to 66/34 mmHg. Med team was called. Her blood pressure improved after IV fluids. On the day of the post angioplasty, she had a hematoma initially that resolved after manual pressure. The right wrist band was deflated and the patient developed a large hematoma to the right forearm and hand. This is treated using a pressure dressing and Christ wrap. There was a drop of hemoglobin to 7.6. She was treated with 2 units of packed red blood cells. Her hemoglobin improved to 10.9. Fecal occult blood was negative. It was felt because of the patient's anemia with acute blood loss from the hematoma. The patient improved, however, she had weakness and felt she was decondition. Physical therapy and occupational therapy saw the patient and felt she was safe to go home with her . She had a bout of constipation that was treated with laxatives. She had leukocytosis. Urinalysis was obtained, which found the patient to have gram negative rods on culture. Levaquin intravenously was given. Today, the patient is sitting up in the chair. She has no complaint of chest pain or palpitations. There was no hematoma noted at the right radial site. There is a large amount of bruising. Her heart rate and blood pressure are stable. Hemoglobin has improved. Physical therapy saw the patient for deconditioning, but felt that she was okayed to be discharged home with her . She is stable for discharge today. PHYSICAL EXAMINATION VITAL SIGNS: Blood pressure 141/62, heart rate 72, temperature 97.9. CHEST: Clear to auscultation. HEART: S1, S2. Regular rate and rhythm. ABDOMEN: Soft and nontender with bowel sounds are present. EXTREMITIES: Without leg edema. Right radial with 3+ pulse. There is large bruising to the hand and forearm. Capillary refill is brisk. DIAGNOSTIC STUDIES LABORATORY RESULTS: Urine cultures with gram-negative rods. Glucose 93, BUN 17, creatinine 0.6, sodium 137, potassium 3.7. MB index 6.1. White count 8.8, hemoglobin 10.9, hematocrit 32.6, and platelet count 190. IMAGING STUDIES: CT of the abdomen and pelvis reveals no acute findings in the abdomen and pelvis. Moderate generalized colonic stool burden. CARDIOVASCULAR STUDIES: EKG; normal sinus rhythm with a first-degree AV block with a rate of 75 beats per minute with leftward axis deviation. DISCHARGE INSTRUCTIONS 1. The patient will be discharged home today. She will be given a laxative prior to discharge. 2. Follow up with the primary care physician in 1 to 2 weeks. Follow up with Dr. Walton in 4 weeks. She would need to call for an appointment. 3. Continue Levaquin 750 mg p.o. for 2 more days. 4. Continue dual anti-platelet therapy with aspirin and Brilinta for Unit #: [id number] #: [id number] Patient: GLORIA KENNEDY least 1 year. This has been discussed with her . On beta micaela, CHRIST inhibitor, and statin. Dictated by... Lasha Mcginnis A.P.R.N. for Dana Banks/sandy TD: 07/20/2016 01:10 JOB #: [id number] Uri Walton M.D. DISCHARGE SUMMARY Page 1 of 1 X Lasha Mcginnis APRN X DISCHARGE SUMMARY
--- NOTE | ~2016-07-15 | HP ---
Unit #: [id number] #: [id number] Patient: GLORIA KENNEDY [id number] [address] [place], [place] [address] [id number] I MR#: [id number] NAME: GLORIA KENNEDY ROOM: 567 Age: 81 Sex: F Admission Date: 07/15/2016 : 1935 Attending Physician: Uriah North M.D. Referring Physician: Uriah North M.D. Primary Care Physician: Brandon Nuñez D.O. HISTORY AND PHYSICAL CHIEF COMPLAINT Chest pain. HISTORY OF PRESENT ILLNESS Ms. Kennedy is an 81-year-old white female with history of severe depression who was brought to the hospital today for outpatient electroconvulsive therapy to be administered under the auspices of anesthesiologist. After her arrival in the emergency room, the patient complained of severe chest discomfort described as pressure and heaviness in the chest radiating to the neck without any associated nausea, diaphoresis, or palpitations. She complained of shortness of breath but her pulse oximetry showed saturation of 98%. The patient says she has had these pains over the last two weeks on numerous occasions and was admitted here on 07/03/2016 for the same. According to her , she has been taken to the hospital emergency room on four separate occasions in the last week or two and no diagnosis was established and she was sent home. Patient says these pains have occurred at rest or on exertion, they have awakened her from sleep but she denies any orthopnea or nocturnal dyspnea. She denies any history of syncope or near syncope preceding or following these chest pains which may last anywhere from 5-10 minutes at a time. The patient does not take any nitroglycerin for the same. She denies any ankle edema, orthopnea or nocturnal dyspnea, has not had any syncope or near syncope but on numerous occasions has complained of palpitations. The patient gives a history of having had "myocardial infarction" and underwent PCI with stent insertion, the details of which she cannot remember and does not know which hospital it was conducted at. PAST MEDICAL HISTORY Significant for: 1. Depression. 2. Hypertension. 3. Gastroesophageal reflux disease. 4. Hypothyroidism. PAST SURGICAL HISTORY Includes: 1. Right total hip arthroplasty. 2. Bilateral cataract extraction with lens implants. SOCIAL HISTORY The patient stopped smoking more than 30 years ago after a total smoking history of about 30 pack years. She used to abuse alcohol a number of years ago but has not been dependent on alcohol for at least 10 years. Unit #: [id number] #: [id number] Patient: GLORIA KENNEDY PHYSICAL EXAMINATION GENERAL: Elderly female in no acute cardiorespiratory distress. NECK: There is no jugular venous distention, both carotids have a normal upstroke without any bruits. There is no ankle edema. HEART: Apical impulse is palpable in the fifth intercostal space in the midclavicular line and is normal. Both heart sounds are normal. No rubs or clicks are audible. There is no murmur. CHEST: Tenderness in bilateral inframammary regions and along the pectoral muscle areas bilaterally but that is not the pain the patient is experiencing. Otherwise, chest examination is normal to palpation, percussion, and auscultation. EXTREMITIES: No leg edema. Posterior tibialis pulses are bilaterally equal and normal. NEUROLOGIC: Patient is moving all four extremities. There is no motor or sensory deficit. Cranial nerves appeared normal. DIAGNOSTIC STUDIES LABORATORY: Cardiac enzymes done at the time of admission were normal. Potassium 3.8, sodium 135. Serum ALT and AST were mildly elevated on 07/11/2016 but were not repeated. Hemoglobin is 11.7, hematocrit 35.6, platelet count 259,000. CARDIOVASCULAR: EKG shows normal sinus rhythm, nonspecific ST-segment changes with T-wave inversion in leads III, aVF, with ST-segment flattening in anterolateral leads. DIAGNOSES 1. Chest pain. Cannot rule out significant ischemic heart disease. 2. History of coronary artery PCI with stent insertion. 3. Hypertension. 4. Severe depression. PLAN The patient was advised that she should be admitted to the hospital because she has suffered from these chest pains almost on a daily basis for the last few weeks. The patient was offered a cardiac catheterization to rule out significant ischemic heart disease or consider a Lexiscan Cardiolite study. The patient does not want to have a cardiac stress test and, after discussion with the , it was elected to proceed with cardiac catheterization to make a definitive diagnosis and to rule out any critical fixed coronary artery stenosis. Cardiac catheterization will be performed tomorrow. Because of her severe depression, I have requested Dr. Dey to see the patient to manage her cardiac symptoms. Dictated by Dana Saba/steven TD: 07/15/2016 20:56 Unit #: [id number] #: [id number] Patient: GLORIA KENNEDY JOB #: [id number] HISTORY AND PHYSICAL Page 1 of 1 X Uri Walton MD X HISTORY AND PHYSICAL
--- NOTE | ~2016-07-15 | EKG ---
PATIENT: GLORIA KENNEDY UNIT #: [id number] Ventricular Rate: 71 BPM Atrial Rate: 71 BPM P-R Interval: 218 ms QRS Duration: 98 ms Q-T Interval: 416 ms QTC Calculation(Bezet): 452 ms P [place]: 43 degrees Calculated R [place]: -15 degrees Calculated T [place]: 21 degrees Diagnosis Line: Sinus rhythm with 1st degree A-V block Diagnosis Line: Otherwise normal ECG Diagnosis Line: When compared with ECG of 16-JUL-2016 12:39, Diagnosis Line: Nonspecific T wave abnormality now evident in Diagnosis Line: Lateral leads Diagnosis Line: Confirmed by CATY GARCIA MD ([id number]) on 07/19/2016 Diagnosis Line: 7:16:53 AM INTERPRETING MD: RADHA LOPEZ
--- NOTE | ~2016-07-15 | EKG ---
PATIENT: GLORIA KENNEDY UNIT #: [id number] Ventricular Rate: 63 BPM Atrial Rate: 63 BPM QRS Duration: 92 ms Q-T Interval: 430 ms QTC Calculation(Bezet): 440 ms Calculated R [place]: -10 degrees Calculated T [place]: -25 degrees Diagnosis Line: Sinus rhythm with 1st degree A-V block Diagnosis Line: Nonspecific ST abnormality Diagnosis Line: Abnormal ECG Diagnosis Line: When compared with ECG of 11-JUL-2016 15:56, Diagnosis Line: Junctional rhythm has replaced Sinus rhythm Diagnosis Line: Inverted T waves have replaced nonspecific T wave Diagnosis Line: abnormality in Inferior leads Diagnosis Line: Confirmed by SPENCER GLYNN MD ([id number]) on 07/16/2016 Diagnosis Line: 9:18:42 AM INTERPRETING MD: GRETTA LOPEZ
--- NOTE | ~2016-07-15 | EKG ---
PATIENT: GLORIA KENNEDY UNIT #: [id number] Ventricular Rate: 60 BPM Atrial Rate: 60 BPM P-R Interval: 226 ms QRS Duration: 104 ms Q-T Interval: 430 ms QTC Calculation(Bezet): 430 ms P [place]: 56 degrees Calculated R [place]: -23 degrees Calculated T [place]: 24 degrees Diagnosis Line: Sinus rhythm with 1st degree A-V block Diagnosis Line: Otherwise normal ECG Diagnosis Line: When compared with ECG of 15-JUL-2016 14:44, Diagnosis Line: (unconfirmed) Diagnosis Line: No significant change was found Diagnosis Line: Confirmed by CATY GARCIA MD ([id number]) on 07/17/2016 Diagnosis Line: 7:46:34 AM INTERPRETING MD: RADHA LOPEZ
--- NOTE | ~2016-07-15 | EKG ---
PATIENT: GLORIA KENNEDY UNIT #: [id number] Ventricular Rate: 75 BPM Atrial Rate: 75 BPM P-R Interval: 218 ms QRS Duration: 106 ms Q-T Interval: 404 ms QTC Calculation(Bezet): 451 ms P [place]: 36 degrees Calculated R [place]: -20 degrees Calculated T [place]: 9 degrees Diagnosis Line: Sinus rhythm with 1st degree A-V block Diagnosis Line: Nonspecific T wave abnormality Diagnosis Line: Abnormal ECG Diagnosis Line: When compared with ECG of 17-JUL-2016 05:48, Diagnosis Line: (unconfirmed) Diagnosis Line: No significant change was found Diagnosis Line: Confirmed by CATY GARCIA MD ([id number]) on 07/19/2016 Diagnosis Line: 7:23:58 AM INTERPRETING MD: RADHA LOPEZ
--- NOTE | ~2016-07-15 | CO ---
Unit #: [id number] #: [id number] Patient: GLORIA KENNEDY [id number] [facility] [address] [facility]. [place], [place] [address] [id number] MR#: [id number] NAME: GLORIA KENNEDY ROOM: 567 Age: 81 Sex: F Admission Date: 07/15/2016 : 1935 Attending Physician: Uriah North M.D. Primary Care Physician: Brandon Nuñez D.O. Consultation Date: 07/19/2016 CONSULTATION REPORT REASON FOR CONSULTATION Depression and anxiety. HISTORY OF PRESENT ILLNESS Ms. Marmolejo is an 81-year-old white female, seen on 07/19/2016 in room 567, bed 1 at [facility]. The patient's was at the bedside. The patient was somewhat upset as well as the about constipation issue. The patient was here for ECT treatment and developed chest pain. The patient had a cardiac cath and had 3 stents placed on 07/15/2016. The patient was very anxious, nervous, and was ordered Ativan p.r.n. for anxiety. The patient reports that she has suffered from depression. The patient was sitting comfortably in chair, pleasant, and cooperative. Currently denied any suicidal or homicidal ideation. Denied any psychotic symptom. The patient reports that she is feeling better, able to smile, made good eye contact. PAST PSYCHIATRIC HISTORY Remarkable for history of depression and receiving ECT treatment. The patient started on second series recently followed by Dr. North from [facility]. MEDICAL HISTORY Remarkable for history of hypertension, gastroesophageal reflux disease, and hypothyroidism. MEDICATIONS The patient is on Levaquin 750 daily, Requip, Imdur, furosemide, hydralazine, nitroglycerin, aspirin, Remeron 15 mg at bedtime, Seroquel 25 mg at bedtime, Zestril, Lipitor, Colace, Tenormin, Synthroid. Please refer to H and P for detail. FAMILY HISTORY AND SOCIAL HISTORY The patient has a good support system. No history of any abuse. No history of any substance abuse. REVIEW OF SYSTEMS Complete review of system is unremarkable. MENTAL STATUS EXAMINATION General appearance, the patient dressed casually, sitting comfortably in reclining chair, made good eye contact. Attention span and concentration, fair. Speech, regular rate and coherent. Oriented in time, place, and person. Mood and affect were sad and dysphoric, but able to smile. Thought process, coherent and goal directed. Thought content, the patient Unit #: [id number] #: [id number] Patient: GLORIA KENNEDY denied any thoughts of harming self or others or any psychotic symptom. Recent and remote memory, fair. Language, able to name object, repeat phrases. Fund of knowledge, fair. Insight and judgment, fair to slightly impaired. DIAGNOSES Psychiatric: Major depressive disorder, recurrent, severe, F33.2. Secondary diagnosis: Deferred. Medical diagnosis: Please refer to H and P. Stressors: Psychosocial stressors. ASSESSMENT/PLAN 1. Supportive psychotherapy and psychoeducation provided to the patient. 2. Educated about benefits and side effects of medication and course and prognosis of illness. 3. Advised the patient to continue with current medication and follow up with Dr. Uriah North upon discharge. In the meantime, continue with current treatment. Please feel free to call if any questions, telephone #[phone]. Dictated by... Kael Dey M.D. ESME/sandy TD: 07/20/2016 02:25 JOB #: [id number] CONSULTATION REPORT Page 1 of 1 X Kael Dey MD X CONSULTATION REPORT
[2016-07-15 16:15] LABS: BASOPHIL% 0.5 % (0-2.5); EOSINOPHIL# 0.2 X10e3 (0-0.7); EOSINOPHIL% 2.3 % (0.0-7.0); HEMATOCRIT 35.6 % (35.0-45.0); HEMOGLOBIN 11.7 gm/dL (12.0-16.0); LYMPHOCYTE# 1.5 X10e3 (1.0-3.5); LYMPHOCYTE% 18.3 % (17.0-45.0); MEAN CELL VOLUME 90.7 FL (83-96); MEAN CORPUSCULAR HEMOGLOBIN 29.7 PG (28-34); MEAN CORPUSCULAR HGB CONC 32.8 g/dL (30-36); MEAN PLATELET VOLUME 9.3 FL (6.5-11.5); MONOCYTE# 0.8 X10e3 (0-1.0); MONOCYTE% 9.6 % (3.0-12.0); NEUTROPHIL# 5.8 X10e3 (1.5-7.1); NEUTROPHIL% 69.3 % (40-75); PLATELET COUNT 259 X10e3 (140-420); RED BLOOD COUNT 3.93 X10e (3.90-5.30); WHITE BLOOD COUNT 8.3 X10e3 (4.0-10.5)
[2016-07-15 16:21] LABS: DIFF IND NO
[2016-07-15 16:32] LABS: PARTIAL THROMBOPLASTIN TIME 27.3 SECONDS (23.5-31.3)
[2016-07-15 16:37] LABS: BLOOD UREA NITROGEN 23 mg/dL (9-23); BUN/CREATININE RATIO 25.55; CALCIUM SERUM 8.9 mg/dL (8.4-10.2); CARBON DIOXIDE 25 mmol/L (22-31); CHLORIDE 104 mmol/L (100-111); CREATININE SERUM 0.9 mg/dL (0.6-1.4); GLOM FILT RATE Estimated ABOVE60 mL/min (>60); GLUCOSE FASTING 94 mg/dL (70-110); POTASSIUM 3.8 mmol/L (3.5-5.1); SODIUM 135 mmol/L (135-145)
[2016-07-16 19:25] LABS: ANGIO %MB 3.6 % (0.0-4.0); ANGIO MB 5.9 ng/ml
[2016-07-17 02:50] LABS: HEMATOCRIT 29.4 % (35.0-45.0); MEAN CELL VOLUME 91.8 FL (83-96); MEAN CORPUSCULAR HEMOGLOBIN 29.7 PG (28-34); MEAN CORPUSCULAR HGB CONC 32.3 g/dL (30-36); MEAN PLATELET VOLUME 9.6 FL (6.5-11.5); RED BLOOD COUNT 3.21 X10e (3.90-5.30); RED CELL DISTRIBUTION WIDTH 14.2 % (11.0-15.5); WHITE BLOOD COUNT 11.8 X10e3 (4.0-10.5)
[2016-07-17 02:59] LABS: HEMOGLOBIN 9.5 gm/dL (12.0-16.0)
[2016-07-17 03:32] LABS: ANGIO %MB 6.1 % (0.0-4.0); CALCIUM SERUM 8.7 mg/dL (8.4-10.2); GLOM FILT RATE Estimated 52.1 mL/min (>60); POTASSIUM 4.7 mmol/L (3.5-5.1)
[2016-07-17 06:02] LABS: HEMATOCRIT 23.6 % (35.0-45.0); HEMOGLOBIN 7.6 gm/dL (12.0-16.0); MEAN CELL VOLUME 91.8 FL (83-96); MEAN CORPUSCULAR HEMOGLOBIN 29.7 PG (28-34); MEAN CORPUSCULAR HGB CONC 32.3 g/dL (30-36); MEAN PLATELET VOLUME 9.7 FL (6.5-11.5); RED BLOOD COUNT 2.57 X10e (3.90-5.30); RED CELL DISTRIBUTION WIDTH 14.2 % (11.0-15.5); WHITE BLOOD COUNT 8.5 X10e3 (4.0-10.5)
[2016-07-17 06:32] LABS: BUN/CREATININE RATIO 21.42; CREATININE SERUM 0.7 mg/dL (0.6-1.4); GLOM FILT RATE Estimated 80.1 mL/min (>60); POTASSIUM 3.8 mmol/L (3.5-5.1)
[2016-07-17 16:11] LABS: HEMATOCRIT 27.4 % (35.0-45.0)
[2016-07-17 23:50] LABS: %MB 5.9 % (0.0-4.0); MB 8.9 ng/ml
[2016-07-18 06:21] LABS: HEMATOCRIT 32.6 % (35.0-45.0); HEMOGLOBIN 10.9 gm/dL (12.0-16.0); MEAN CELL VOLUME 89.7 FL (83-96); MEAN CORPUSCULAR HEMOGLOBIN 29.9 PG (28-34); MEAN CORPUSCULAR HGB CONC 33.4 g/dL (30-36); MEAN PLATELET VOLUME 9.8 FL (6.5-11.5); RED BLOOD COUNT 3.63 X10e (3.90-5.30); RED CELL DISTRIBUTION WIDTH 14.6 % (11.0-15.5); WHITE BLOOD COUNT 8.8 X10e3 (4.0-10.5)
[2016-07-18 07:05] LABS: BUN/CREATININE RATIO 28.33; CALCIUM SERUM 8.6 mg/dL (8.4-10.2); CREATININE SERUM 0.6 mg/dL (0.6-1.4); GLOM FILT RATE Estimated 84.3 mL/min (>60); MAGNESIUM 1.9 mg/dL (1.6-3.0); POTASSIUM 3.7 mmol/L (3.5-5.1)
[2016-07-18 15:07] LABS: URINE APPEARANCE TURBID; URINE BILIRUBIN NEG (NEG); URINE BLOOD 1+ (NEG); URINE COLOR YELLOW; URINE GLUCOSE NEG (NEG); URINE KETONE NEG (NEG); URINE LEUKOCYTE ESTERASE 3+ (NEG); URINE NITRATE POS (NEG); URINE PH 6.5 (5-8); URINE PROTEIN 1+ (NEG); URINE SPECIFIC GRAVITY 1.019 (1.003-1.035); URINE UROBILINOGEN 0.2 MG/DL (NEG)
[2016-07-18 15:09] LABS: CULTURE INDICATED? YES; URINE BACTERIA AUWI 4+ (NEGATIVE); URINE SQUAMOUS EPITHELIAL CELL MOD /[HPF]; UWBCS1 AUWI 200-300 (0-5)
[2016-07-19] MEDS ORDERED: LEVAQUIN750 MG PO (16:39)
[2016-08-26] MEDS ORDERED: ACETAMINOPHEN PO (09:57)
[2016-08-26] MEDS ORDERED: ZESTRIL40 MG PO (15:22)
[2016-08-26] MEDS ORDERED: ZOLOFT100 MG PO (15:23)
[2016-08-26] MEDS ORDERED: SYNTHROID25 MCG PO (15:23)
[2016-08-26] MEDS ORDERED: MOBIC PO (15:24)
[2016-08-26] MEDS ORDERED: LASIX20 MG PO (15:24)
[2016-08-26] MEDS ORDERED: LIPITOR40 MG PO (15:25)
[2016-08-26] MEDS ORDERED: TENORMIN50 MG PO (15:26)
[2016-08-26] MEDS ORDERED: SEROQUEL25 MG PO (15:26)
[2016-08-26] MEDS ORDERED: ATIVAN0.5 MG PO (15:27)
[2016-08-26] MEDS ORDERED: REMERON SOLTAB15 M1 PO (15:28)
[2016-08-26] MEDS ORDERED: DOCUSATE SODIU100 MG PO (16:35)
[2016-08-26] MEDS ORDERED: REQUIP1 MG PO (16:38)
[2016-08-26] MEDS ORDERED: BRILINTA90 MG PO (21:18)
[2016-08-26] MEDS ORDERED: ASPIRIN81 MG PO (21:19)
[2016-08-26] MEDS ORDERED: IMDUR PO (21:24)
[2016-08-26] MEDS ORDERED: NITROGLYCERIN0.3 M1 PO (21:26)
== END 2016-07-19 17:50 | disposition home or self-care (01) | DRG 247 ==
LOC: CSUR 07:36 → CPACUOF 09:27 → C4C 13:12 → C5C 15:17
PROVIDERS: Internal Medicine Cardiovascular Disease; Nurse Practitioner Family; Psychiatry & Neurology Psychiatry
PROC: 027136Z Dilation of Coronary Artery, Two Arteries with Three Drug-eluting Intraluminal Devices, Percutaneous Approach (ICD-10-PCS; principal; 2016-07-16)
PROC: 4A023N7 Measurement of Cardiac Sampling and Pressure, Left Heart, Percutaneous Approach (ICD-10-PCS; 2016-07-16)
PROC: B215YZZ Fluoroscopy of Left Heart using Other Contrast (ICD-10-PCS; 2016-07-16)
PROC: 05H633Z Insertion of Infusion Device into Left Subclavian Vein, Percutaneous Approach (ICD-10-PCS; 2016-07-17)
PROC: B547ZZA Ultrasonography of Left Subclavian Vein, Guidance (ICD-10-PCS; 2016-07-17)
PROC: 30233N1 Transfusion of Nonautologous Red Blood Cells into Peripheral Vein, Percutaneous Approach (ICD-10-PCS; 2016-07-17)
DX: I25.10 Atherosclerotic heart disease of native coronary artery without angina pectoris (principal); F33.2 Major depressive disorder, recurrent severe without psychotic features; N39.0 Urinary tract infection, site not specified; D62 Acute posthemorrhagic anemia; I25.2 Old myocardial infarction; I10 Essential (primary) hypertension; K21.9 Gastro-esophageal reflux disease without esophagitis; E03.9 Hypothyroidism, unspecified; Z96.641 Presence of right artificial hip joint; Z98.42 Cataract extraction status, left eye; Z98.41 Cataract extraction status, right eye; Z96.1 Presence of intraocular lens; Z95.5 Presence of coronary angioplasty implant and graft; F41.9 Anxiety disorder, unspecified; G25.81 Restless legs syndrome; K59.00 Constipation, unspecified; B96.20 Unspecified Escherichia coli [E. coli] as the cause of diseases classified elsewhere; S60.211A Contusion of right wrist, initial encounter
CPT/HCPCS: 80048; 80061; 81003; 82274; 82550; 82553; 82947; 83735; 84484; 85014; 85018; 85025; 85027; 85347; 85610; 85730; 86850; 86900; 86901; 86923; 87086; 87088; 87186; 90870; 93005; 97116; 97162; C1725; C1769; C1874; C1887; C1894; G8978-GP; G8979-GP; J0330; J0360; J1327; J1644; J1956; J2060; J2250; J2270; J2310; J3010; P9016

== ENCOUNTER → 2016-08-24 | Day surgery (SDC) | payer MEDICARE ==
[~2016-08-24] MED LIST changes: +ACETAMINOPHEN PO; +ASPIRIN81 MG PO; +ATIVAN0.5 MG PO; +BRILINTA90 MG PO; +DOCUSATE SODIU100 MG PO; +IMDUR PO; +LEVAQUIN750 MG PO; +NITROGLYCERIN0.3 M1 PO; +REMERON SOLTAB15 M1 PO; +REQUIP1 MG PO; +SEROQUEL25 MG PO; +SYNTHROID25 MCG PO; +TENORMIN50 MG PO; +ZESTRIL40 MG PO; +ZOLOFT100 MG PO
--- NOTE | ~2016-08-24 | ECT ---
Unit #: [id number] #: [id number] Patient: GLORIA KENNEDY [id number] [address] [address] [id number] O MR#: [id number] NAME: GLORIA KENNEDY ROOM: Age: 81 Sex: F Admission Date: 08/24/2016 : 1935 Discharge Date: Attending Physician: Uriah North M.D. Primary Care Physician: Brandon Nuñez D.O. ECT NOTE DATE OF TREATMENT 08/24/2016 TREATMENT NUMBER 1 TREATMENT MODALITY Unilateral ECT. ANESTHESIA Glycopyrrolate: 0.2 mg Brevital: 100 mg Succinylcholine: 80 mg TREATMENT PARAMETERS Charge: 480 millicoulombs Pulse Width: 1.0 milliseconds Frequency: 50 Hertz Duration: 6 seconds Current: 800 milliamps TREATMENT DELIVERED Energy: 99.1 joules Impedance: 252 ohms Charge: 480 millicoulombs SEIZURE MEASURES OMS: 28 seconds EE seconds COMPLICATIONS None. SUMMARY Patient had a good seizure with OMS and EEG measures. Complaints and somatic symptoms seem to be about the same as the last time I saw her. She does have depression, psychomotor retardation, poor focus and concentration, loss of interest and activities, some social isolation withdrawal. No suicidal or homicidal ideation is noted. I will continue her ECTs on a p.r.n. basis. DIFFERNTIAL DIAGNOSIS AXIS I F33.2. AXIS II Deferred. Unit #: [id number] #: [id number] Patient: GLORIA KENNEDY AXIS III Nothing acute. Dictated by... Uriah North M.D. ANGELES/emanuel TD: 08/25/2016 03:38 JOB #: [id number] ECT NOTE Page 1 of 1 X Uriah North MD <ELECTRONICALLY SIGNED> 11/23/16 1207 X ECT
== END | disposition home or self-care (01) ==
LOC: CSUR 07:44
DX: F33.2 Major depressive disorder, recurrent severe without psychotic features (principal); K21.9 Gastro-esophageal reflux disease without esophagitis; E03.9 Hypothyroidism, unspecified; I10 Essential (primary) hypertension; I25.10 Atherosclerotic heart disease of native coronary artery without angina pectoris; Z95.5 Presence of coronary angioplasty implant and graft; Z79.899 Other long term (current) drug therapy
CPT/HCPCS: 90870; J0330

== ENCOUNTER → 2016-08-26 | Day surgery (SDC) | payer MEDICARE ==
--- NOTE | ~2016-08-26 | ECT ---
Unit #: [id number] #: [id number] Patient: GLORIA KENNEDY [id number] [address] [address] [id number] O MR#: [id number] NAME: GLORIA KENNEDY ROOM: Age: 81 Sex: F Admission Date: 08/26/2016 : 1935 Discharge Date: Attending Physician: Uriah North M.D. Primary Care Physician: Brandon Nuñez D.O. ECT NOTE DATE OF TREATMENT 08/26/2016 TREATMENT NUMBER Two. TREATMENT MODALITY Unilateral ECT ANESTHESIA Glycopyrrolate: 0.2 mg Brevital: 100 mg Succinylcholine: 80 mg TREATMENT PARAMETERS Charge: 480 millicoulombs Pulse Width: 1.0 milliseconds Frequency: 50 Hertz Duration: 6 seconds Current: 800 milliamps TREATMENT DELIVERED Energy: 97.9 joules Impedance: 245 ohms Charge: 480 millicoulombs SEIZURE MEASURES OMS: 25 seconds EE seconds COMPLICATIONS None. SUMMARY The patient had a good seizure with both OMS and EEG measures. Depression has reached baseline. She has no symptoms noted today. She is showing a good full range of affect. Sleep is good. Psychomotor retardation seems to have dissipated. She is not having as many somatic complaints. I will conclude her ECTs today and she will follow up on a p.r.n. basis. DIFFERENTIAL DIAGNOSES AXIS I: F33.2. AXIS II: Deferred. Unit #: [id number] #: [id number] Patient: GLORIA KENNEDY AXIS III: Nothing acute. AXIS IV: AXIS V: Dictated by... Uriah North M.D. ANGELES/jessa TD: 08/26/2016 10:48 JOB #: [id number] ECT NOTE Page 1 of 1 X Uriah North MD <ELECTRONICALLY SIGNED> 11/23/16 1207 X ECT
== END | disposition home or self-care (01) ==
LOC: CSUR 07:45
DX: F33.2 Major depressive disorder, recurrent severe without psychotic features (principal); I10 Essential (primary) hypertension; E78.5 Hyperlipidemia, unspecified; I25.10 Atherosclerotic heart disease of native coronary artery without angina pectoris; I25.2 Old myocardial infarction; E03.9 Hypothyroidism, unspecified; K21.9 Gastro-esophageal reflux disease without esophagitis; Z79.1 Long term (current) use of non-steroidal anti-inflammatories (NSAID); Z79.82 Long term (current) use of aspirin; Z79.899 Other long term (current) drug therapy; Z95.5 Presence of coronary angioplasty implant and graft; Z90.89 Acquired absence of other organs; Z90.710 Acquired absence of both cervix and uterus; Z96.641 Presence of right artificial hip joint; Z98.890 Other specified postprocedural states
CPT/HCPCS: 90870; J0330